=== PATIENT | male | born 1985 | race African-American/Black ===

== ENCOUNTER 2019-08-24 16:18 | Emergency (ER) | payer OTHER ==
[~2019-08-24] VITALS: Ht 188 cm; Wt 108.9 kg
[2019-08-24 17:17] LABS: BE(vivo) 0 mmol/L (-2 to +3); HCO3 24.1 mmol/L (22.0-26.0); PCO2 VENOUS 37.7 mmHg (41.0-51.0); PO2 VENOUS 52.3 mmHg (35.0-45.0)
[2019-08-24] MEDS ORDERED: IBUPROFEN 800800 M1 PO (17:51)
[2019-08-24] MEDS ORDERED: ZOFRAN ODT4 MG PO (17:51)
[2019-08-24 17:58] VITALS: BP 118/79
== END 2019-08-24 18:01 | disposition home or self-care (01) ==
LOC: ER 16:18
PROVIDERS: Nurse Practitioner Family
DX: J11.1 Influenza due to unidentified influenza virus with other respiratory manifestations (principal)